=== PATIENT | female | born 2000 ===

== ENCOUNTER 2021-08-05 22:22 | Emergency (ER) | payer SELFPAY ==
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
[2021-08-06 10:20] VITALS: BP 118/78; TEMP 98.9; O2SAT 99
== END 2021-08-05 23:44 | disposition home or self-care (01) ==
LOC: ER 22:22
DX: S63.591A Other specified sprain of right wrist, initial encounter (principal); E03.9 Hypothyroidism, unspecified
CPT/HCPCS: 99281